=== PATIENT | male | born 1955 | race Caucasian/White ===

== ENCOUNTER 2019-02-27 16:48 | Emergency (ER) | payer OTHER ==
[~2019-02-27] VITALS: Ht 165.1 cm; Wt 108.9 kg
[~2019-02-27 16:48] MED LIST: ACTOS15 MG PO; AMARYL1 MG PO; KEFLEX500 M1 PO; LOTREL 10-20 M1 EACH PO; NORCO 5-325 TA1 EACH PO
[2019-02-27] MEDS ORDERED: ASA81BEC PO (17:00)
[2019-02-27] MEDS ORDERED: ZOFRAN ODT4 MG PO (17:47)
[2019-02-27] MEDS ORDERED: NABUMETONE 750750 M1 PO (17:47)
[2019-02-27] MEDS ORDERED: BUTALB-APAP-CA1 EACH PO (17:47)
[2019-02-27] MEDS ORDERED: FLEXERIL PO (17:55)
[2019-02-27 18:38] VITALS: BP 145/85
== END 2019-02-27 18:39 | disposition home or self-care (01) ==
LOC: M.ERS 16:48
DX: S06.0X0A Concussion without loss of consciousness, initial encounter (principal); S16.1XXA Strain of muscle, fascia and tendon at neck level, initial encounter; S29.012A Strain of muscle and tendon of back wall of thorax, initial encounter; I10 Essential (primary) hypertension; E11.9 Type 2 diabetes mellitus without complications; W01.0XXA Fall on same level from slipping, tripping and stumbling without subsequent striking against object, initial encounter; Y93.89 Activity, other specified; Y92.89 Other specified places as the place of occurrence of the external cause; Y99.8 Other external cause status

== ENCOUNTER 2019-03-08 08:56 | Inpatient (IN) | payer OTHER ==
[~2019-03-08] VITALS: Ht 165.1 cm; Wt 100.9 kg
[2019-03-08] VITALS (7 sets, daily range): BP systolic 122–173; BP diastolic 69–86
[~2019-03-08 08:56] MED LIST changes: +ASA81BEC PO; +BUTALB-APAP-CA1 EACH PO; +FLEXERIL PO; +NABUMETONE 750750 M1 PO; +ZOFRAN ODT4 MG PO
[2019-03-08 09:53] LABS: URINE BILIRUBIN NEGATIVE (Negative); URINE BLOOD NEGATIVE (Negative); URINE CLARITY CLEAR; URINE COLOR YELLOW; URINE GLUCOSE-RANDOM 3+ (Negative); URINE KETONES 1+ (Negative); URINE LEUKOCYTES-REFLEX TRACE (Negative); URINE NITRITE-REFLEX NEGATIVE (Negative); URINE PROTEIN NEGATIVE (Negative); URINE UROBILINOGEN 0.2 E.U./dl (0.2-1.0)
[2019-03-08 09:55] LABS: BACTERIA-REFLEX 1-9 Few /HPF (None Seen); CASTS None Seen /LPF (None Seen); CRYSTALS None Seen /LPF (None Seen); SQUAMOUS 0-3 Few /LPF (0-3); URINE RBC 0-2 Rare /HPF (0-2); URINE WBC-REFLEX 0-5 Rare /HPF (0-5)
[2019-03-08 09:59] LABS: ABSOLUTE EOSINOPHILS 0.1 thou/uL (0.0-0.7); ABSOLUTE LYMPHOCYTES 0.7 thou/uL (0.8-5.3); ABSOLUTE MONOCYTES 0.4 thou/uL (0.0-1.2); ABSOLUTE NEUTROPHILS 5.3 thou/uL (1.6-8.1); BASOPHILS 0.5 %; EOSINOPHILS 0.8 %; HEMATOCRIT 43.8 % (42.0-52.0); HEMOGLOBIN 15.8 gm/dL (14.0-18.0); LYMPHOCYTES 10.5 %; MCH 32.5 pg (26.0-34.0); MCV 90.1 fL (80.0-100.0); MONOCYTES 6.3 %; MPV 9.3 fl. (7.2-11.1); NUCLEATED RBCS 0 /100WBC; PLATELET COUNT* 144 thou/uL (150-400); POLYS 81.9 %; RBC 4.86 mil/uL (4.50-6.00); RDW-CV 12.8 % (10.5-14.5); WBC 6.5 thou/uL (4.0-11.0)
[2019-03-08 10:04] LABS: CALCIUM 8.4 mg/dL (8.5-10.1); CREATININE 0.6 mg/dL (0.6-1.3); POTASSIUM 4.4 mmol/L (3.5-5.1)
[2019-03-08 10:07] LABS: APTT 24.5 Seconds (25.0-31.3)
[2019-03-08 10:08] LABS: ALBUMIN 3.4 g/dL (3.4-5.0); TOTAL BILIRUBIN 0.6 mg/dL (<0.1-1.0)
--- NOTE | 2019-03-08 11:51 | NUR ---
HARIS NOTIFIED UPON PT RETURN FROM CT. PT CONNECTED TO MONITOR
--- NOTE | 2019-03-08 16:08 | EKG ---
[place] [address] ELECTROCARDIOGRAM REPORT Name: GRISELDA BOLDEN SR Room: [address] ADM IN [facility]#: [id number] Admission: 03/08/19 Attend Phys: Sherita Tijerina Discharge: Date of : 53 Report #: [id number] THIS REPORT FOR: //name// [facility] ED Test Date: 2019-03-08 Test Time: 09:05:17 Pat Name: GRISELDA BOLDEN Department: Room: [facility] Gender: M Career Agent: : 1955 Requested By: Jhony Connors Order Number: [id number] MD: Jeramie Roa Measurements Intervals [place] Rate: 71 P: 22 OR: 147 QRS: -16 QRSD: 100 T: 18 QT: 422 QTc: 459 Interpretive Statements Sinus rhythm Borderline left axis deviation No previous ECG available for comparison Electronically Signed On 03-08-2019 16:07:42 C2 TACTICAL ANALYSIS TECHNICIAN by Jeramie Roa [email or web address] <ELECTRONICALLY SIGNED> By: Jeramie Roa MD, [facility] 03/08/19 1607 09 09 Jeramie Roa MD, [facility] /EPI
[2019-03-08] MEDS ORDERED: LOTREL 10-40 M1 EACH PO (17:43)
[2019-03-08] MEDS ORDERED: JANUMET XR 50-1 EACH PO (17:44)
--- NOTE | 2019-03-08 19:09 | NUR ---
PT ARRIVED TO ROOM 215 AT APPROX 1300 PT A/O X4, C/O DIZZYNESS, UP WITH 2 ASSIST FOR FALL PRECAUTIONS, PT IS VERY UNSTEADY. USING URINAL AT THIS TIME. PT GOES FREQUENTLY. ORDERS RECIEVED FROM PHYSICIAN. PT TO HAVE CT TOMORROW, PT UPDATED ON PLAN OF CARE. REVIEWED AND UPDATED HOME MEDS. WILL CONTINUE WITH PLAN OF CARE.
[2019-03-08 21:27] LABS: CHOLESTEROL 233 mg/dL (<200); HDL CHOLESTEROL 35 mg/dL (>40); LDL CHOLESTEROL 158 mg/dL (<100); TC:HDL 6.7 Ratio (Not establshd); TRIGLYCERIDE 204 mg/dL (<150); VLDL 41 mg/dL (<40)
[2019-03-08 21:28] LABS: SERUM ASSESSMENT Clear
[2019-03-09] VITALS: BP 138/77
[2019-03-09 03:07] LABS: GLYCOHEMOGLOBIN (HGB A1C) 12.1 % (4.8-5.6)
[2019-03-09 04:00] VITALS: BP 144/82
--- NOTE | 2019-03-09 04:47 | NUR ---
ASSUMED CARE OF PT AT 1900. PT IS ALERT AND ORIENTED. VSS. PERRLA. NO COMPLAINTS OF PAIN. PT IS VERY DIZZY WHEN HE STANDS. PTS BLOOD SUGAR IS CONSISTANTLY IN THE 300'S. PT IS IN SINUS RYTHM ON THE TELEMETRY. PT IS RESTING COMFORTABLY IN BED. RESPIRATIONS ARE EVEN AND NONLABORED. WILL CONTINUE TO MONITOR PT.
[2019-03-09 08:00] VITALS: BP 169/79
[2019-03-09 11:42] VITALS: BP 146/85
[2019-03-09] MEDS ORDERED: DOXEPIN 10 MG C10 M1 PO (12:09)
[2019-03-09] MEDS ORDERED: ANTIVERT25 MG PO (12:10)
[2019-03-09] MEDS ORDERED: LANTUS SUBQ (12:11)
--- NOTE | 2019-03-09 13:50 | EEG ---
[address] [address] EEG STUDY REPORT Name: GRISELDA BOLDEN SR Room: [address] IN [facility]#: [id number] Admission: 03/08/19 Attend Phys: Sherita Tijerina Discharge: Date of : 53 Report #: [id number] THIS REPORT FOR: //name// CC: Nela Champagneeschin DATE OF SERVICE: 03/09/2019 This patient is being evaluated for syncope. EEG was done by placing the electrodes by standard 10-20 system of electrode placement. Both referential and sequential montages were used for recording. Background activity in this patient's EEG is about 9 Hz and 30 microvolts. The patient went to sleep that is associated with bilateral slowing and vertex sharp waves. Photic stimulation is unremarkable. Throughout the record, no active epileptiform activity was noticed. IMPRESSION: This patient's EEG is within normal limits. No active epileptiform activity was noticed during this record. Thank you very much for this referral. <ELECTRONICALLY SIGNED> By: Scott Kulkarni MD 03/09/19 1350 1043 [id number] Kulkarni MD /nt
[2019-03-09 15:44] VITALS: BP 146/85
[2019-03-09 16:24] VITALS: BP 168/80
--- NOTE | 2019-03-09 19:11 | NUR ---
VSS, PT A&OX4, NSR ON TELE, HOURLY ROUNDING PERFORMED, POSSESSIONS AND CALL LIGHT WITHIN REACH. REC DISCHARGE ORDERS, REVIEWED WITH PATIENT AND SPOUSE, PT TRAINED TO ADMINISTER INSULIN, SCRIPTS GIVEN WITH CARE NOTES, PATIENT TAKEN IN WHEELCHAIR BY NURSING STAFF TO FRONT DOOR AND PICKED UP BY SPOUSE IN CAR..
== END 2019-03-09 17:10 | disposition home or self-care (01) | DRG 149 ==
LOC: M.ERS 08:56 → M.2W 11:40 → M.TBA-ER 11:40 → M.2W 12:48
PROVIDERS: Emergency Medicine; ADMIT Internal Medicine
DX: H81.10 Benign paroxysmal vertigo, unspecified ear (principal); I10 Essential (primary) hypertension; E11.65 Type 2 diabetes mellitus with hyperglycemia; E66.9 Obesity, unspecified; F41.9 Anxiety disorder, unspecified; Z79.899 Other long term (current) drug therapy; Z68.37 Body mass index [BMI] 37.0-37.9, adult; Z79.4 Long term (current) use of insulin; Z79.82 Long term (current) use of aspirin; Z82.49 Family history of ischemic heart disease and other diseases of the circulatory system; Z83.6 Family history of other diseases of the respiratory system

== ENCOUNTER 2020-06-16 09:04 | Emergency (ER) | payer OTHER ==
[~2020-06-16] VITALS: Ht 167.6 cm; Wt 113.4 kg
[~2020-06-16 09:04] MED LIST changes: +ANTIVERT25 MG PO; +DOXEPIN 10 MG C10 M1 PO; +JANUMET XR 50-1 EACH PO; +LANTUS SUBQ; +LOTREL 10-40 M1 EACH PO
[2020-06-16] MEDS ORDERED: METFORMIN HCL500 M3 PO (09:14)
[2020-06-16] MEDS ORDERED: LANTUS SUBQ (09:15)
[2020-06-16 09:43] LABS: URINE BILIRUBIN NEGATIVE (Negative); URINE BLOOD NEGATIVE (Negative); URINE CLARITY CLEAR; URINE COLOR YELLOW; URINE GLUCOSE-RANDOM 3+ (Negative); URINE KETONES NEGATIVE (Negative); URINE LEUKOCYTES-REFLEX NEGATIVE (Negative); URINE NITRITE-REFLEX NEGATIVE (Negative); URINE PROTEIN NEGATIVE (Negative); URINE UROBILINOGEN 0.2 E.U./dl (0.2-1.0)
[2020-06-16 10:01] LABS: ABSOLUTE EOSINOPHILS 0.1 thou/uL (0.0-0.7); ABSOLUTE MONOCYTES 0.5 thou/uL (0.0-1.2); ABSOLUTE NEUTROPHILS 4.9 thou/uL (1.6-8.1); BASOPHILS 0.6 %; EOSINOPHILS 1.2 %; HEMOGLOBIN 14.8 gm/dL (14.0-18.0); LYMPHOCYTES 15.4 %; MCH 30.6 pg (26.0-34.0); MCHC 34.4 g/dL (28.0-37.0); MCV 89.2 fL (80.0-100.0); MONOCYTES 8.3 %; MPV 8.4 fl. (7.2-11.1); NUCLEATED RBCS 0 /100WBC; PLATELET COUNT* 183 thou/uL (150-400); POLYS 74.5 %; RBC 4.83 mil/uL (4.50-6.00); RDW-CV 12.7 % (10.5-14.5); WBC 6.6 thou/uL (4.0-11.0)
[2020-06-16 10:10] LABS: CALCIUM 8.2 mg/dL (8.5-10.1); CREATININE 0.7 mg/dL (0.6-1.3); POTASSIUM 4.2 mmol/L (3.5-5.1)
[2020-06-16 10:21] LABS: ALBUMIN 3.3 g/dL (3.4-5.0); TOTAL BILIRUBIN 0.5 mg/dL (<0.1-1.0); TOTAL PROTEIN 7.2 g/dL (6.4-8.2)
[2020-06-16 11:36] LABS: APTT 24.5 Seconds (25.0-31.3)
[2020-06-16 11:37] LABS: PROTIME 14.6 Seconds (9.20-11.50)
[2020-06-16 11:38] LABS: INR 1.4
[2020-06-16 12:23] VITALS: BP 148/77
--- NOTE | 2020-06-16 17:08 | EKG ---
[place] [address] ELECTROCARDIOGRAM REPORT Name: GINO BOLDEN SR Room: [facility]#: [id number] Admission: 06/16/20 Attend Phys: Discharge: 06/16/20 Date of : 53 Date of Service: 06/16/20 0937 Report #: [id number] THIS REPORT FOR: //name// [facility] ED Test Date: 2020-06-16 Test Time: 09:37:03 Pat Name: GINO BOLDEN Department: Room: Gender: M Insurance Counsel: CD : 1955 Requested By: Roel Holland Order Number: [id number] MD: Royal Hernadez Measurements Intervals [place] Rate: 68 P: 22 UT: 154 QRS: -23 QRSD: 98 T: 8 QT: 399 QTc: 425 Interpretive Statements Sinus rhythm Left axis deviation Borderline T abnormalities, inferior leads Baseline wander in lead(s) I,II,aVR Compared to ECG 03/08/2019 09:05:17 T-wave abnormality now present Electronically Signed On 06-16-2020 17:08:11 CDT by Royal Hernadez [email or web address] <ELECTRONICALLY SIGNED> By: Royal Hernadez MD, FACC 06/16/20 1708 0937 0937 Royal Hernadez MD, FAC /EPI
== END 2020-06-16 12:24 | disposition home or self-care (01) ==
LOC: M.ERS 09:04
PROVIDERS: Family Medicine
DX: E11.9 Type 2 diabetes mellitus without complications (principal); R42 Dizziness and giddiness; I10 Essential (primary) hypertension